=== PATIENT | male | born 2000 | race Caucasian/White ===

== ENCOUNTER 2023-01-21 11:37 | Emergency (ER) | payer OTHER, SELFPAY ==
[~2023-01-21] VITALS: Ht 190.5 cm; Wt 93.2 kg
[2023-01-21] MEDS ORDERED: LIDOCAINE 2% MDV 20ML VIAL SC ONE (15:00)
[2023-01-21] MEDS ORDERED: DOXY-443 PO (15:38)
[2023-01-21] MEDS ORDERED: DOXYCYCLINE HYCLATE 100MG TABLET PO ONE (15:40)
[2023-01-21 15:49] VITALS: BP 148/94; TEMP 98.3; O2SAT 98
== END 2023-01-21 15:50 | disposition home or self-care (01) ==
LOC: M ED 11:37
DX: L02.214 Cutaneous abscess of groin (principal); F17.200 Nicotine dependence, unspecified, uncomplicated; F10.10 Alcohol abuse, uncomplicated; Z79.2 Long term (current) use of antibiotics